=== PATIENT | female | born 1950 | race Caucasian/White ===

== ENCOUNTER 2018-06-15 07:34 | Emergency (ER) | END 2018-06-15 08:04 | disposition home or self-care (01) ==

== ENCOUNTER 2019-02-25 12:39 | Emergency (ER) | payer MEDICARE, OTHER ==
[~2019-02-25] VITALS: Ht 162.6 cm; Wt 72.3 kg
[~2019-02-25 12:39] MED LIST: AZIT250T PO; HYDR-4011 PO; IBUP-1561 PO; TRIA60LO10 TOP
[2019-02-25 12:48] VITALS: Ht 162.6 cm; Wt 72.3 kg
[2019-02-25] MEDS ORDERED: SOD CHLORIDE 0.9% 500 ML IV STA (13:25)
--- NOTE | 2019-02-25 13:53 | ERD ---
ER Documentation Chief Complaint Chief Complaint c/o increasing weakness, left eye blood shunt this AM. Hx: ovarian CA HPI This is a 68-year-old female with a past medical history of hypertension, hyperlipidemia, coronary artery disease, no previous heart attacks, on a baby aspirin daily, previous ovarian cancer status post hysterectomy, who is presenting with generalized fatigue that seem to began this morning upon waking. The patient feels generally unwell, but she has difficulty explaining it fully. She does report a very mild generalized headache but no vision changes. The patient's triage blood pressure is elevated but not emergently so. She denies nausea or vomiting. She denies any focal deficits. She has no weakness or numbness or tingling to the face or extremities. She does not endorse feeling sick. She has no fever or chills. She denies any chest pain or trouble breathing. She denies lightheadedness or dizziness. She has not had any episodes of diaphoresis. The patient did have a stress test performed recently as a routine screening and was told that she may need to get a CT cardiac angiogram, but this is being scheduled in an outpatient setting. The patient's other concern is bleeding around her iris that she noticed this morning while looking in the mirror getting ready for the day. She denies any double or blurry vision. She denies any visual acuity changes. She denies any visual field deficits. She denies any photophobia or phonophobia. She denies any itching or burning or pain to the eye. She denies any trauma or injury. ROS All systems reviewed and are negative except as per history of present illness. Medications Home Meds Reported Medications Aspirin* (Aspirin* EC) 81 Mg Tablet.dr, 81 MG PO DAILY, TAB 02/25/19 Rosuvastatin Calcium* (Crestor*) 5 Mg Tablet, 5 MG PO QHS, #30 TAB 02/25/19 Cholecalciferol* (Vitamin D3*) 1,000 Unit Tablet, 2000 UNIT PO DAILY, TAB 02/25/19 [place]-3/Dha/Epa/Fish Oil (FISH OIL 1,000 MG SOFTGEL) 1 Each Capsule, 1 CAP PO DA BAUTISTA, CAP 02/25/19 Multivitamins* (Theragran*) 1 Tab Tab, 1 TAB PO DAILY, TAB 02/25/19 Diltiazem Hcl* (Cardizem CD*) 120 Mg Cap.sr.24h, 120 MG PO DAILY, #30 CAP 02/25/19 Discontinued Scripts Triamcinolone Acetonide (Triamcinolone Acetonide) 0.025% - 60 Ml Lotion, 1 APPLIC TOP BID for 7 Days, #1 BOTTLE Prov:KRISSYJENNIE PA-C 06/15/18 Hydrocodone/Acetaminophen ([place] 5-325 Tablet) 1 Each Tablet, 1 TAB PO Q6H PRN for PAIN, #20 TAB Prov:SIDDHARTHAFIDENCIO Parker 08/23/16 Ibuprofen* (Motrin*) 400 Mg Tab, 400 MG PO Q6, #30 TAB Prov:SIDDHARTHA,FIDENCIO C 08/23/16 Azithromycin* (Zithromax*) 250 Mg Tablet, 250 MG PO .ZPACK DIRECTED, #6 TAB TAKE 500 MG (2 TABS) THE FIRST DAY THEN 250 MG (1 TAB) DAYS 2-5 Prov:SIDDHARTHASHREYAFIDENCIO C 11/07/15 Allergies Allergies: Coded Allergies: sertraline (Verified Allergy, Unknown, 02/25/19) sulfamethoxazole (Verified Allergy, Unknown, 02/25/19) trimethoprim (Verified Allergy, Unknown, 02/25/19) PMhx/Soc History of Surgery: Yes (hysterectomy; ovarianCA) Anesthesia Reaction: No Hx Neurological Disorder: No Hx Respiratory Disorders: No Hx Cardiac Disorders: Yes (Hypertension, hyperlipidemia, coronary artery disease, A. fib) Hx Psychiatric Problems: No Hx Miscellaneous Medical Probl: Yes (ovarian ca, gastritis) Hx Alcohol Use: No Hx Substance Use: No Hx Tobacco Use: No Smoking Status: Never smoker FmHx Family History: No diabetes Physical Exam Vitals Vital Signs Date Temp Pulse Resp B/P (MAP) Pulse Ox O2 O2 Flow FiO2 Time Delivery Rate 02/25/19 84 14 133/83 97 Room Air 13:48 (100) 82 124/80 (95) 86 122/82 (95) 02/25/19 97.6 81 20 133/81 96 Room Air 13:10 (98) 02/25/19 97.6 82 20 130/89 96 12:48 (103) Physical Exam Const: No apparent distress, well-developed, well-nourished Head: Normocephalic, Atraumatic Eyes: Left subconjunctival hemorrhage. Normal conjunctival to the right eye. Extraocular movements intact. Pupils equal, round and reactive to light. No visual field deficits. Normal visual acuity. ENT: Normal External Ears, Nose and Mouth. Neck: Full range of motion. No meningismus. Resp: Clear to auscultation bilaterally, No wheezes, rales or rhonchi Cardio: Regular rate and rhythm. No murmurs, rubs or gallops Abd: Soft, non tender, non distended. Normal bowel sounds Skin: No petechiae or rashes Back: No midline tenderness. No CVA tenderness Ext: No cyanosis, or edema Neur: Awake and alert, oriented 4. Cranial nerves intact. No facial droop. Normal strength, sensation and coordination. Psych: Normal Mood and Affect Result Diagram: 02/25/19 1335 02/25/19 1336 Results 24 hrs Laboratory Tests Test 02/25/19 13:35 02/25/19 13:36 White Blood Count 7.3 10^3/ul Red Blood Count 4.72 10^6/ul Hemoglobin 13.9 g/dl Hematocrit 40.4 % Mean Corpuscular Volume 85.6 fl Mean Corpuscular Hemoglobin 29.4 pg Mean Corpuscular Hemoglobin Concent 34.4 g/dl Red Cell Distribution Width 13.2 % Platelet Count 343 10^3/UL Mean Platelet Volume 9.8 fl Immature Granulocytes % 0.400 % Neutrophils % 44.5 % Lymphocytes % 42.3 % Monocytes % 9.7 % Eosinophils % 2.1 % Basophils % 1.0 % Nucleated Red Blood Cells % 0.0 /100WBC Immature Granulocytes # 0.030 10^3/ul Neutrophils # 3.2 10^3/ul Lymphocytes # 3.1 10^3/ul Monocytes # 0.7 10^3/ul Eosinophils # 0.2 10^3/ul Basophils # 0.1 10^3/ul Nucleated Red Blood Cells # 0.0 10^3/ul Prothrombin Time 11.7 Sec Prothrombin Time Ratio 0.9 INR International Normalized Ratio 0.85 Bedside Glucose 92 mg/dL Sodium Level 140 mmol/L Potassium Level 4.4 mmol/L Chloride Level 100 mmol/L Carbon Dioxide Level 30 mmol/L Anion Gap 10 Blood Urea Nitrogen 14 mg/dl Creatinine 0.70 mg/dl Est Glomerular Filtrat Rate mL/min > 60 mL/min Glucose Level 92 mg/dl Calcium Level 10.2 mg/dl Troponin I < 0.012 ng/ml Current Medications Medications Dose Sig/Madonna Start Time Status Last (Trade) Ordered Route PRN Stop Time Admin Dose Reason Admin Sodium 500 ml @ Q1H STAT 02/25/19 02/25/19 Chloride 500 mls/hr IV 13:25 13:31 02/25/19 14:24 Procedures/MDM MDM The patient's presentation warrants further investigation. Previous medical records, if available, were reviewed. LABS The patient's laboratory testing was obtained and reviewed. No emergent treatment was required unless described below. CBC: No E/o systemic infection or severe anemia or thrombocytopenia Chemistry: No E/o severe acidosis or alkalosis or renal failure or diabetic ketoacidosis PT/INR: No E/o significant coagulopathy Troponin: No E/o acute ischemia EKG EKG read by me: Rate/Rhythm: Regular rate and rhythm at a rate of 71 bpm Intervals: Normal [place]: Normal Impression: Q waves in the inferior leads correlating with likely old ischemia. No evidence of acute ischemia or arrhythmia IMAGING Imaging and Radiology interpretation reviewed. CXR FINDINGS: Support Hardware: None Cardiovascular: The cardiovascular silhouette appears unremarkable. Lung De La O: The lung de la o appear clear with no nodule, alveolar infiltrate, or interstitial prominence evident. Pleural Spaces: No pneumothorax or pleural effusion is identified. Osseous Structures: Mild degenerative enthesopathy of the thoracic spine is noted. Soft Tissues: The soft tissues appear unremarkable. IMPRESSION: 1. Stable chest without evidence of acute cardiopulmonary disease. 2. Mild degenerative enthesopathy of the thoracic spine. Electronically viewed and signed by Physician Abril on 02/25/2019 14:05 TREATMENT/DISPOSITION The patient presents with fatigue. The patient has a reassuring physical exam. The patient is not clinically orthostatic. The patient is not dizzy. I have decreased suspicion for vertigo. The patient has no signs of emergent or symptomatic anemia. The patient does not have any emergent electrolyte or metabolic emergencies. I have decrease suspicion for a thyroid disorder. The patient is not toxic appearing. I have decreased suspicion for an infectious etiology of symptoms. The patient's EKG and troponin are reassuring. I have low suspicion for acute coronary syndrome. I do not see evidence of any emergent cardiac arrhythmia, which includes but is not limited to heart block, Brugada syndrome or WPW. The patient has no heart murmurs or rales. There is no evidence of cardiomegaly on exam or chest xray. I have low suspicion for hypertrophic cardiomyopathy. I do not see evidence of CHF. The patient does not endorse any chest or pleuritic pain. The history is negative for bleeding or clotting disorders. The patient has not been involved in any recent prolonged trips or surgeries or hospitalizations. The patient has no calf tenderness or swelling. I have decreased suspicion for PE as the etiology of symptoms. The patient does endorse a mild headache. The patient has no focal deficits. The neurologic exam is reassuring. I have decreased suspicion for cerebral ischemia. There was no trauma or injury. There is no personal or family history of cerebral aneurysm. I have decreased suspicion for SAH or other ICH. I have low suspicion for temporal arteritis, cavernous venous thrombosis, subdural he matoma, epidural hematoma, meningitis. The [place] Syncope Rule was applied and the patient was found to be low risk for a serious outcome. The patient does have a mild subconjunctival hemorrhage. The patient reports that it is been unchanged since he woke up this morning. I do not see any evidence of active bleeding. This does not require any further intervention. There is no evidence of an ocular emergency. DISCHARGE Upon reevaluation of the patient, symptoms have improved. No emergent diagnoses were identified. At this time, I feel that the patient stable for discharge. The patient was instructed to follow-up with a primary care physician in 1-3 days. The patient will be given strict precautions with which to return to the emergency department. Prescriptions: None The patient's blood pressure was elevated at greater than 120/80 while in the emergency department. The patient was otherwise stable with no evidence of hypertensive urgency or emergency. The patient does not require admission for blood pressure control. I have discussed with the patient the risks of hypertension. I have instructed the patient to return to the ER for any new or worsening symptoms including chest pain, shortness of breath, headache, blurred vision, confusion, nausea, vomiting or LOC. I have advised the patient to follow up with the primary care physician for outpatient monitoring and treatment for hypertension in 1-3 days. Disclaimer: Inadvertent spelling and grammatical errors are likely due to EHR/dictation software use and do not reflect on the overall quality of patient care. Note that the electronic time recorded on this note does not necessarily reflect the actual time of the patient encounter. Departure Diagnosis: Primary Impression: Fatigue Fatigue type: unspecified Qualified Codes: R53.83 - Other fatigue Additional Impression: Subconjunctival hemorrhage of left eye Condition: Stable Patient Instructions: Subconjunctival Hemorrhage, Weakness, Unk Cause Additional Instructions: Thank you for for coming to [facility] for your care today. Please ask your nurse or provider if you have questions about your care today and do not leave until all your questions have been answered. Please use any medications given as directed and follow-up with your doctor (or the doctor you were referred to) in the next 1-3 days. If you do not have a primary care doctor you may follow up at the [facility] or [facility] (listed below). You may also use motrin and tylenol as needed for fever and/or pain unless instructed otherwise by your provider or nurse. Indications for more urgent follow-up have been discussed, but you may return to the Emergency Department at ANY time for any worrisome or worsening symptoms. If you have abdominal pain, please know that no test or exam you received is perfect and you should follow up within 8 hours for continued pain. If you had any imaging studies today, such as an X-Ray or CT Scan, these studies will be reviewed later by a radiologist. You will be called if there are important findings that were not identified today, so make sure the contact information you provided at registration is correct. If you received any narcotic pain control medicine today, such as Vicodin, Morphine or Dilaudid, your coordination and judgment may be affected for a number of hours. Please do not drive or operate heavy machinery, and you may want someone to assist you at home. If you were given a prescription for narcotic medication, be aware that it is very addictive- use sparingly and only if necessary. PLEASE SEEK FURTHER EVALUATION AND MANAGEMENT AT YOUR DOCTORS OFFICE WITHIN THE NEXT 1-3 DAYS. IT IS YOUR RESPONSIBILITY TO MAKE AN APPOINTMENT FOR FOLOW-UP CARE. IF YOU HAVE A PRIMARY DOCTOR, PLEASE CALL THEIR OFFICE TO SCHEDULE AN APPOINTMENT FOR FOLLOW UP. IF YOU DO NOT HAVE A PRIMARY DOCTOR YOU CAN CALL OUR PHYSICIAN REFERRAL HOTLINE AT IF YOU CAN NOT AFFORD TO SEE A PHYSICIAN YOU CAN CHOSE FROM THE FOLLOWING [facility] CLINICS: [facility] [address] [facility] [address] [facility] [facility] [address] [facility] [address] [facility] [address] [facility]. [facility]. [address] JARROD DONIS MD Feb 25, 2019 13:48
[2019-02-25] MEDS ORDERED: DILT120C77 PO (14:11)
[2019-02-25] MEDS ORDERED: OMEG-158 PO (14:13)
[2019-02-25] MEDS ORDERED: CRES5 PO (14:13)
[2019-02-25] MEDS ORDERED: CHOL100062 PO (14:13)
[2019-02-25] MEDS ORDERED: MULTI PO (14:13)
[2019-02-25] MEDS ORDERED: ASPI-817 PO (14:13)
[2019-02-25 15:10] VITALS: BP 134/85; PULSE 73; RESP 12
== END 2019-02-25 15:10 | disposition home or self-care (01) ==
LOC: E/R 12:39
DX: H11.32 Conjunctival hemorrhage, left eye (principal); R53.83 Other fatigue; I10 Essential (primary) hypertension; I25.10 Atherosclerotic heart disease of native coronary artery without angina pectoris; Z79.82 Long term (current) use of aspirin; Z85.43 Personal history of malignant neoplasm of ovary
CPT/HCPCS: 36415; 71045; 80048; 82962; 84484; 85025; 85610; 93005; 99285; J7040